=== PATIENT | female | born 1960 | race Caucasian/White ===

== ENCOUNTER → 2016-07-20 | Outpatient (CLI) | payer OTHER ==
[~2016-07-20] MED LIST: APAP/HYDROCODON1 T13 PO; BACTRIM DS1 TAB PO; CIPRO750 MG PO; COLACE100 MG PO; HYD25 PO; HYDROCHLOROTHIA25 MG PO; LIPI20 PO; LISINOPRIL40 MG PO; ZES20 PO; ZOC10 PO
[2016-07-20 10:20] LABS: BASOPHIL % 0.4 % (0-2); PLATELET COUNT 298 x10^3mcL (130-400); RED CELL DISTRIBUTION WIDTH 14.4 % (11.5-14.5)
[2016-07-20 10:26] LABS: ALBUMIN 3.3 g/dL (3.4-5.0); ALKALINE PHOSPHATASE 81 U/L (46-116); ALT/SGPT 50 U/L (14-59); AST/SGOT 23 U/L (15-37); BILIRUBIN TOTAL 0.34 mg/dL (0.20-1.00); CALCIUM 9.2 mg/dL (8.5-10.1); CHLORIDE SERUM 102 mmol/L (98-107); CHOLESTEROL 131 mg/dL (<200); CHOLESTEROL/HDL RATIO 2.4; CREATININE SERUM 0.6 mg/dL (0.6-1.0); GFR1 > 60 mL/min; GLUCOSE SERUM 138 mg/dL (74-106); HDL CHOLESTEROL 54 mg/dL (40-60); POTASSIUM SERUM 3.9 mmol/L (3.5-5.1); SODIUM SERUM 137 mmol/L (136-145); TRIGLYCERIDES 138 mg/dL (<150)
== END | disposition home or self-care (01) ==
LOC: LB 09:25
PROVIDERS: Internal Medicine
DX: I10 Essential (primary) hypertension (principal); D64.9 Anemia, unspecified; E78.5 Hyperlipidemia, unspecified; E03.9 Hypothyroidism, unspecified; E11.9 Type 2 diabetes mellitus without complications; R73.09 Other abnormal glucose

== ENCOUNTER → 2016-08-13 | Outpatient (CLI) | payer OTHER ==
[2016-08-13 10:25] LABS: BASOPHIL % 0.5 % (0-2); PLATELET COUNT 275 x10^3mcL (130-400)
[2016-08-13 10:27] LABS: RED CELL DISTRIBUTION WIDTH 14.7 % (11.5-14.5)
[2016-08-13 10:38] LABS: ALBUMIN 3.4 g/dL (3.4-5.0); ALKALINE PHOSPHATASE 91 U/L (46-116); ALT/SGPT 43 U/L (14-59); AST/SGOT 21 U/L (15-37); BILIRUBIN TOTAL 0.4 mg/dL (0.20-1.00); C REACTIVE PROTEIN 1.3 mg/dL (<=0.9); CALCIUM 9.2 mg/dL (8.5-10.1); CARBON DIOXIDE 24.6 mmol/L (21-32); CHLORIDE SERUM 99 mmol/L (98-107); CREATININE SERUM 0.7 mg/dL (0.6-1.0); GFR1 > 60 mL/min; GLUCOSE SERUM 161 mg/dL (74-106); POTASSIUM SERUM 3.6 mmol/L (3.5-5.1); SODIUM SERUM 133 mmol/L (136-145)
[2016-08-13 11:11] LABS: ERYTHROCYTE SED RATE 36 mm/hr (0-30)
== END | disposition home or self-care (01) ==
LOC: RD 09:38
PROVIDERS: Internal Medicine
DX: M25.561 Pain in right knee (principal)
CPT/HCPCS: 86480

== ENCOUNTER 2017-03-19 09:02 | Inpatient (IN) | payer OTHER ==
[~2017-03-19] VITALS: Ht 170.2 cm; Wt 96.7 kg
[2017-03-19 13:33] LABS: BASOPHIL % 1.6 % (0-2); PLATELET COUNT 276 x10^3mcL (130-400)
[2017-03-19] MEDS ORDERED: LIPI20 PO (13:38)
[2017-03-19] MEDS ORDERED: METHOTREXATE2.5 M2 PO (13:39)
[2017-03-19] MEDS ORDERED: COZ25 PO (13:39)
[2017-03-19] MEDS ORDERED: IMURAN50 MG PO (13:40)
[2017-03-19] MEDS ORDERED: METFORMIN HYDR500 M1 PO (13:41)
[2017-03-19] MEDS ORDERED: ASPIR 8181 MG PO (13:41)
[2017-03-19 13:42] LABS: RED CELL DISTRIBUTION WIDTH 15.7 % (11.5-14.5)
[2017-03-19 14:03] LABS: CALCIUM 9.4 mg/dL (8.5-10.1); CARBON DIOXIDE 29.7 mmol/L (21-32); CHLORIDE SERUM 101 mmol/L (98-107); CREATININE SERUM 0.6 mg/dL (0.6-1.0); GFR1 > 60 mL/min; GLUCOSE SERUM 121 mg/dL (74-106); POTASSIUM SERUM 3.8 mmol/L (3.5-5.1); SODIUM SERUM 139 mmol/L (136-145)
[2017-03-19 14:08] LABS: ALBUMIN 3.4 g/dL (3.4-5.0); ALKALINE PHOSPHATASE 58 U/L (46-116); ALT/SGPT 56 U/L (14-59); AST/SGOT 29 U/L (15-37); CHOLESTEROL 163 mg/dL (<200); PHOSPHOROUS 3.3 mg/dL (2.5-4.9); TOTAL PROTEIN, SERUM 7.1 g/dL (6.4-8.2)
[2017-03-19 14:10] LABS: HDL CHOLESTEROL 87 mg/dL (40-60)
[2017-03-19] MEDS ORDERED: PREDNISONE2.5 MG PO (14:15)
[2017-03-19 14:16] VITALS: BP 154/90
[2017-03-19 14:29] LABS: CHOLESTEROL/HDL RATIO 1.9
[2017-03-19 14:32] VITALS: Ht 170.2 cm; Wt 96.7 kg
[2017-03-19 14:34] LABS: FREE T4 1.13 ng/dL (0.76-1.46)
[2017-03-19 14:35] LABS: T4(THYROXINE) 13.4 ug/dL (4.7-13.3)
[2017-03-19 15:08] LABS: T3 TOTAL 1.66 ng/mL
[2017-03-19 16:16] VITALS: BP 148/84
[2017-03-19 16:23] LABS: microscopic required? YES; urine erythrocyte NEGATIVE (NEGATIVE)
[2017-03-19 17:43] LABS: AMPHETAMINE QUAL UR NONE DETECTED (NEG <=1000)
[2017-03-19 21:08] VITALS: BP 146/71
[2017-03-20 05:22] VITALS: BP 136/75
[2017-03-20 06:50] LABS: BASOPHIL % 0.2 % (0-2); PLATELET COUNT 294 x10^3mcL (130-400)
[2017-03-20 07:19] LABS: CALCIUM 9.1 mg/dL (8.5-10.1); CARBON DIOXIDE 24.6 mmol/L (21-32); CHLORIDE SERUM 101 mmol/L (98-107); CREATININE SERUM 0.6 mg/dL (0.6-1.0); GFR1 > 60 mL/min; GLUCOSE SERUM 148 mg/dL (74-106); PHOSPHOROUS 3.5 mg/dL (2.5-4.9); SODIUM SERUM 134 mmol/L (136-145)
[2017-03-20 07:33] LABS: RED CELL DISTRIBUTION WIDTH 15.3 % (11.5-14.5)
[2017-03-20 09:44] VITALS: BP 112/66
[2017-03-20 13:38] VITALS: BP 144/81
[2017-03-20] MEDS ORDERED: NEU300 PO (18:20)
[2017-03-20 20:13] VITALS: BP 169/97
[2017-03-21 04:55] VITALS: BP 136/71
[2017-03-21 08:46] VITALS: BP 159/90
[2017-03-21] MEDS ORDERED: BAC PO (16:15)
[2017-03-21] MEDS ORDERED: ACCU-CHEK1 EACH MC (16:15)
[2017-03-21] MEDS ORDERED: COZ50 PO (16:15)
[2017-03-21] MEDS ORDERED: BG FS (16:15)
[2017-03-21 16:40] VITALS: BP 144/87
[2017-03-21] MEDS ORDERED: COLACE100 MG PO (16:46)
[2017-03-21] MEDS ORDERED: MAC100 PO (17:02)
== END 2017-03-21 17:21 | disposition home or self-care (01) | DRG 551 ==
LOC: ED 09:02 → MU 13:12 → DU 13:12 → MU 03-20 19:41
PROVIDERS: Emergency Medicine; Family Medicine
DX: M51.17 Intervertebral disc disorders with radiculopathy, lumbosacral region (principal); N17.0 Acute kidney failure with tubular necrosis; N39.0 Urinary tract infection, site not specified; E87.1 Hypo-osmolality and hyponatremia; E11.65 Type 2 diabetes mellitus with hyperglycemia; E11.51 Type 2 diabetes mellitus with diabetic peripheral angiopathy without gangrene; E78.00 Pure hypercholesterolemia, unspecified; M94.1 Relapsing polychondritis; I10 Essential (primary) hypertension; E05.80 Other thyrotoxicosis without thyrotoxic crisis or storm; E66.9 Obesity, unspecified; Z68.33 Body mass index [BMI] 33.0-33.9, adult; Z82.0 Family history of epilepsy and other diseases of the nervous system; Z83.3 Family history of diabetes mellitus; Z82.49 Family history of ischemic heart disease and other diseases of the circulatory system
CPT/HCPCS: 82962; 83880; 84439; 97110-GP; 97116-GP; 97530-GP; J0696; J1100; J1885; J2001; J3010; J3301; J7030; J7500; J7512; J8610; Q0092

== ENCOUNTER 2017-05-06 08:26 | Day surgery (SDC) | payer OTHER ==
[2017-05-05 10:10] LABS: BASOPHIL % 0.4 % (0-2); PLATELET COUNT 301 x10^3mcL (130-400)
[2017-05-05 10:16] LABS: RED CELL DISTRIBUTION WIDTH 15.9 % (11.5-14.5)
[2017-05-05 10:26] LABS: microscopic required? YES; urine erythrocyte 1+ (NEGATIVE)
[2017-05-05 10:55] LABS: CALCIUM 9.7 mg/dL (8.5-10.1); CARBON DIOXIDE 30.7 mmol/L (21-32); CHLORIDE SERUM 103 mmol/L (98-107); CREATININE SERUM 0.6 mg/dL (0.6-1.0); GFR1 > 60 mL/min; GLUCOSE SERUM 108 mg/dL (74-106); POTASSIUM SERUM 3.8 mmol/L (3.5-5.1); SODIUM SERUM 141 mmol/L (136-145)
[~2017-05-06] VITALS: Ht 160 cm; Wt 95.2 kg
[~2017-05-06 08:26] MED LIST changes: +ACCU-CHEK1 EACH MC; +ASPIR 8181 MG PO; +BAC PO; +BG FS; +COZ25 PO; +COZ50 PO; +IMURAN50 MG PO; +MAC100 PO; +METFORMIN HYDR500 M1 PO; +METHOTREXATE2.5 M2 PO; +NEU300 PO; +PREDNISONE2.5 MG PO
[2017-05-06 08:48] VITALS: BP 154/95
[2017-05-06 14:52] VITALS: BP 128/92
== END 2017-05-06 14:50 | disposition home or self-care (01) ==
LOC: DS 08:26 → OR 09:00 → DS 10:00
PROVIDERS: Neuromusculoskeletal Medicine, Sports Medicine
PROC: 0SBC4ZZ Excision of Right Knee Joint, Percutaneous Endoscopic Approach (ICD-10-PCS; principal; 2017-05-06 10:00)
DX: S83.241A Other tear of medial meniscus, current injury, right knee, initial encounter (principal); M94.261 Chondromalacia, right knee; M06.9 Rheumatoid arthritis, unspecified; I10 Essential (primary) hypertension; E78.5 Hyperlipidemia, unspecified; E11.9 Type 2 diabetes mellitus without complications; E66.01 Morbid (severe) obesity due to excess calories; Z68.41 Body mass index [BMI] 40.0-44.9, adult; Z79.84 Long term (current) use of oral hypoglycemic drugs; X58.XXXA Exposure to other specified factors, initial encounter; Y92.9 Unspecified place or not applicable
CPT/HCPCS: 82962; J0690; J1030; J1720; J2250; J2270; J2405; J2704; J3010; J3490; J7030

== ENCOUNTER → 2017-05-25 | Outpatient (CLI) | payer OTHER ==
[2017-05-25 10:01] LABS: BASOPHIL % 0.8 % (0-2); PLATELET COUNT 246 x10^3mcL (130-400)
[2017-05-25 10:16] LABS: RED CELL DISTRIBUTION WIDTH 15.1 % (11.5-14.5)
[2017-05-25 11:38] LABS: ERYTHROCYTE SED RATE 22 mm/hr (0-30)
[2017-05-25 12:28] LABS: ALBUMIN 3.3 g/dL (3.4-5.0); ALKALINE PHOSPHATASE 64 U/L (46-116); ALT/SGPT 63 U/L (14-59); AST/SGOT 30 U/L (15-37); BILIRUBIN TOTAL 0.4 mg/dL (0.20-1.00); C REACTIVE PROTEIN < 0.2 mg/dL (<=0.9); CALCIUM 8.9 mg/dL (8.5-10.1); CARBON DIOXIDE 28.3 mmol/L (21-32); CHLORIDE SERUM 103 mmol/L (98-107); CREATININE SERUM 0.5 mg/dL (0.6-1.0); GFR1 > 60 mL/min; GLUCOSE SERUM 96 mg/dL (74-106); POTASSIUM SERUM 3.6 mmol/L (3.5-5.1); SODIUM SERUM 136 mmol/L (136-145); TOTAL PROTEIN, SERUM 6.5 g/dL (6.4-8.2)
== END | disposition home or self-care (01) ==
LOC: LB 09:35
DX: M94.8X9 Other specified disorders of cartilage, unspecified sites (principal)

== ENCOUNTER → 2017-07-07 | Outpatient (CLI) | payer OTHER ==
[2017-07-07 18:35] LABS: BASOPHIL % 0.9 % (0-2); PLATELET COUNT 263 x10^3mcL (130-400)
[2017-07-07 18:46] LABS: ALBUMIN 3.7 g/dL (3.4-5.0); ALKALINE PHOSPHATASE 87 U/L (46-116); ALT/SGPT 98 U/L (14-59); AST/SGOT 43 U/L (15-37); BILIRUBIN TOTAL 0.4 mg/dL (0.20-1.00); C REACTIVE PROTEIN 0.4 mg/dL (<=0.9); CALCIUM 9.4 mg/dL (8.5-10.1); CARBON DIOXIDE 27.2 mmol/L (21-32); CHLORIDE SERUM 103 mmol/L (98-107); CREATININE SERUM 0.6 mg/dL (0.6-1.0); GFR1 > 60 mL/min; GLUCOSE SERUM 136 mg/dL (74-106); POTASSIUM SERUM 3.6 mmol/L (3.5-5.1); SODIUM SERUM 139 mmol/L (136-145); TOTAL PROTEIN, SERUM 7.3 g/dL (6.4-8.2)
[2017-07-07 18:50] LABS: RED CELL DISTRIBUTION WIDTH 14.9 % (11.5-14.5)
[2017-07-07 19:51] LABS: ERYTHROCYTE SED RATE 25 mm/hr (0-30)
== END | disposition home or self-care (01) ==
LOC: RD 17:10
PROC: B54BZZZ Ultrasonography of Right Lower Extremity Veins (ICD-10-PCS; principal; 2017-07-07)
DX: M25.471 Effusion, right ankle (principal); I82.401 Acute embolism and thrombosis of unspecified deep veins of right lower extremity
CPT/HCPCS: 85378

== ENCOUNTER → 2017-07-22 | Outpatient (CLI) | payer OTHER | END | disposition home or self-care (01) | LOC: MI 12:43 | PROC: BQ37ZZZ Magnetic Resonance Imaging (MRI) of Right Knee (ICD-10-PCS; principal; 2017-07-22) | DX: M25.561 Pain in right knee (principal); M71.21 Synovial cyst of popliteal space [Baker], right knee ==

== ENCOUNTER → 2017-08-22 | Outpatient (CLI) | payer OTHER ==
[2017-08-22 11:06] LABS: ALKALINE PHOSPHATASE 84 U/L (46-116); ALT/SGPT 56 U/L (14-59); AST/SGOT 26 U/L (15-37); BILIRUBIN TOTAL 0.6 mg/dL (0.20-1.00); CALCIUM 8.5 mg/dL (8.5-10.1); CARBON DIOXIDE 24.4 mmol/L (21-32); CHLORIDE SERUM 102 mmol/L (98-107); CREATININE SERUM 0.6 mg/dL (0.6-1.0); GFR1 > 60 mL/min; GLUCOSE SERUM 97 mg/dL (74-106); POTASSIUM SERUM 3.3 mmol/L (3.5-5.1); SODIUM SERUM 136 mmol/L (136-145); TOTAL PROTEIN, SERUM 6.5 g/dL (6.4-8.2)
[2017-08-22 11:07] LABS: ALBUMIN 3.3 g/dL (3.4-5.0)
== END | disposition home or self-care (01) ==
LOC: LB 09:55
DX: R94.5 Abnormal results of liver function studies (principal)

== ENCOUNTER → 2017-09-22 | Outpatient (CLI) | payer OTHER ==
[2017-09-22 11:31] LABS: PLATELET COUNT 208 x10^3mcL (130-400); RED CELL DISTRIBUTION WIDTH 14.1 % (11.5-14.5)
[2017-09-22 11:52] LABS: ALBUMIN 3.8 g/dL (3.4-5.0); ALKALINE PHOSPHATASE 62 U/L (46-116); ALT/SGPT 63 U/L (14-59); AST/SGOT 33 U/L (15-37); BILIRUBIN TOTAL 0.58 mg/dL (0.20-1.00); CALCIUM 8.9 mg/dL (8.5-10.1); CARBON DIOXIDE 29.3 mmol/L (21-32); CHLORIDE SERUM 99 mmol/L (98-107); CREATININE SERUM 0.6 mg/dL (0.6-1.0); GFR1 > 60 mL/min; GLUCOSE SERUM 85 mg/dL (74-106); POTASSIUM SERUM 3.1 mmol/L (3.5-5.1); SODIUM SERUM 137 mmol/L (136-145)
[2017-09-22 11:53] LABS: C REACTIVE PROTEIN < 0.2 mg/dL (<=0.9)
[2017-09-22 12:26] LABS: ERYTHROCYTE SED RATE 13 mm/hr (0-30)
== END | disposition home or self-care (01) ==
LOC: LB 10:53
DX: M06.00 Rheumatoid arthritis without rheumatoid factor, unspecified site (principal); M79.7 Fibromyalgia; Z79.899 Other long term (current) drug therapy

== ENCOUNTER → 2018-01-20 | Outpatient (CLI) | payer OTHER ==
[2018-01-20 08:20] LABS: BASOPHIL % 1.1 % (0-2); PLATELET COUNT 237 x10^3mcL (130-400); RED CELL DISTRIBUTION WIDTH 13.7 % (11.5-14.5)
[2018-01-20 09:01] LABS: ERYTHROCYTE SED RATE 17 mm/hr (0-30)
[2018-01-20 09:02] LABS: ALBUMIN 3.7 g/dL (3.4-5.0); ALKALINE PHOSPHATASE 89 U/L (46-116); ALT/SGPT 47 U/L (14-59); AST/SGOT 25 U/L (15-37); BILIRUBIN TOTAL 0.53 mg/dL (0.20-1.00); C REACTIVE PROTEIN 0.2 mg/dL (<=0.9); CALCIUM 9.1 mg/dL (8.5-10.1); CARBON DIOXIDE 28.7 mmol/L (21-32); CHLORIDE SERUM 102 mmol/L (98-107); CREATININE SERUM 0.8 mg/dL (0.6-1.0); GFR1 > 60 mL/min; GLUCOSE SERUM 97 mg/dL (74-106); POTASSIUM SERUM 3.8 mmol/L (3.5-5.1); SODIUM SERUM 139 mmol/L (136-145); TOTAL PROTEIN, SERUM 7.4 g/dL (6.4-8.2)
== END | disposition home or self-care (01) ==
LOC: LB 07:55
DX: M06.00 Rheumatoid arthritis without rheumatoid factor, unspecified site (principal); M79.7 Fibromyalgia; Z79.899 Other long term (current) drug therapy

== ENCOUNTER → 2018-04-12 | Outpatient (CLI) | payer OTHER ==
[2018-04-12 09:20] LABS: BASOPHIL % 0.9 % (0-2); PLATELET COUNT 249 x10^3mcL (130-400)
[2018-04-12 09:21] LABS: RED CELL DISTRIBUTION WIDTH 14.7 % (11.5-14.5)
[2018-04-12 10:05] LABS: ALBUMIN 3.8 g/dL (3.4-5.0); ALKALINE PHOSPHATASE 88 U/L (46-116); ALT/SGPT 50 U/L (14-59); AST/SGOT 27 U/L (15-37); BILIRUBIN TOTAL 0.58 mg/dL (0.20-1.00); CALCIUM 9.1 mg/dL (8.5-10.1); CARBON DIOXIDE 30.9 mmol/L (21-32); CHLORIDE SERUM 103 mmol/L (98-107); CHOLESTEROL 193 mg/dL (<200); CREATININE SERUM 0.6 mg/dL (0.6-1.0); GFR1 > 60 mL/min; GLUCOSE SERUM 103 mg/dL (74-106); POTASSIUM SERUM 3.9 mmol/L (3.5-5.1); SODIUM SERUM 139 mmol/L (136-145); TOTAL PROTEIN, SERUM 7.7 g/dL (6.4-8.2); TRIGLYCERIDES 171 mg/dL (<150)
[2018-04-12 10:13] LABS: CHOLESTEROL/HDL RATIO 2.5; HDL CHOLESTEROL 76 mg/dL (40-60)
== END | disposition home or self-care (01) ==
LOC: LB 08:50
DX: E55.9 Vitamin D deficiency, unspecified (principal); I10 Essential (primary) hypertension; D64.9 Anemia, unspecified; E03.9 Hypothyroidism, unspecified; E11.9 Type 2 diabetes mellitus without complications

== ENCOUNTER → 2018-05-04 | Outpatient (CLI) | payer OTHER ==
[2018-05-04 10:59] LABS: PLATELET COUNT 214 x10^3mcL (130-400); RED CELL DISTRIBUTION WIDTH 14.2 % (11.5-14.5)
[2018-05-04 11:12] LABS: ALBUMIN 3.6 g/dL (3.4-5.0); ALKALINE PHOSPHATASE 78 U/L (46-116); ALT/SGPT 44 U/L (14-59); AST/SGOT 27 U/L (15-37); BILIRUBIN TOTAL 0.52 mg/dL (0.20-1.00); CALCIUM 8.8 mg/dL (8.5-10.1); CARBON DIOXIDE 27.4 mmol/L (21-32); CHLORIDE SERUM 104 mmol/L (98-107); CREATININE SERUM 0.5 mg/dL (0.6-1.0); GFR1 > 60 mL/min; GLUCOSE SERUM 98 mg/dL (74-106); POTASSIUM SERUM 3.7 mmol/L (3.5-5.1); SODIUM SERUM 140 mmol/L (136-145); TOTAL PROTEIN, SERUM 7.2 g/dL (6.4-8.2)
[2018-05-04 11:18] LABS: C REACTIVE PROTEIN < 2.0 mg/dL (<=0.9)
[2018-05-04 12:02] LABS: ERYTHROCYTE SED RATE 24 mm/hr (0-30)
== END | disposition home or self-care (01) ==
LOC: LB 10:21
DX: M06.00 Rheumatoid arthritis without rheumatoid factor, unspecified site (principal); M79.7 Fibromyalgia; Z79.899 Other long term (current) drug therapy

== ENCOUNTER → 2018-07-29 | Outpatient (CLI) | payer OTHER ==
[2018-07-29 13:10] LABS: BASOPHIL % 0.5 % (0-2); PLATELET COUNT 220 x10^3mcL (130-400)
[2018-07-29 13:35] LABS: ALBUMIN 3.8 g/dL (3.4-5.0); ALKALINE PHOSPHATASE 88 U/L (46-116); ALT/SGPT 41 U/L (14-59); AST/SGOT 20 U/L (15-37); BILIRUBIN TOTAL 0.53 mg/dL (0.20-1.00); CALCIUM 9.8 mg/dL (8.5-10.1); CARBON DIOXIDE 27.5 mmol/L (21-32); CHLORIDE SERUM 105 mmol/L (98-107); CHOLESTEROL 183 mg/dL (<200); CREATININE SERUM 0.6 mg/dL (0.6-1.0); GFR1 > 60 mL/min; GLUCOSE SERUM 106 mg/dL (74-106); POTASSIUM SERUM 3.8 mmol/L (3.5-5.1); SODIUM SERUM 141 mmol/L (136-145); TOTAL PROTEIN, SERUM 7.6 g/dL (6.4-8.2); TRIGLYCERIDES 137 mg/dL (<150)
[2018-07-29 13:47] LABS: C REACTIVE PROTEIN < 0.2 mg/dL (<=0.9); CHOLESTEROL/HDL RATIO 2.5; HDL CHOLESTEROL 74 mg/dL (40-60)
[2018-07-29 14:35] LABS: ERYTHROCYTE SED RATE 18 mm/hr (0-30)
== END | disposition home or self-care (01) ==
LOC: LB 12:27
DX: M94.1 Relapsing polychondritis (principal); R73.03 Prediabetes; M79.7 Fibromyalgia; Z79.899 Other long term (current) drug therapy; Z92.29 Personal history of other drug therapy

== ENCOUNTER → 2018-09-28 | Outpatient (CLI) | payer OTHER | END | disposition home or self-care (01) | LOC: US 08:33 | PROC: BW4GZZZ Ultrasonography of Pelvic Region (ICD-10-PCS; principal; 2018-09-28) | DX: R10.2 Pelvic and perineal pain (principal) ==

== ENCOUNTER → 2019-01-10 | Outpatient (CLI) | payer OTHER ==
[2019-01-10 09:35] LABS: BASOPHIL % 1.3 % (0-2); PLATELET COUNT 247 x10^3mcL (130-400)
[2019-01-10 09:57] LABS: RED CELL DISTRIBUTION WIDTH 14.7 % (11.5-14.5)
[2019-01-10 10:55] LABS: ERYTHROCYTE SED RATE 20 mm/hr (0-30)
[2019-01-10 16:07] LABS: ALBUMIN 3.8 g/dL (3.4-5.0); ALKALINE PHOSPHATASE 76 U/L (46-116); ALT/SGPT 50 U/L (14-59); AST/SGOT 18 U/L (15-37); BILIRUBIN TOTAL 0.49 mg/dL (0.20-1.00); CALCIUM 9.1 mg/dL (8.5-10.1); CARBON DIOXIDE 28.4 mmol/L (21-32); CREATININE SERUM 0.6 mg/dL (0.6-1.0); GFR1 > 60 mL/min; GLUCOSE SERUM 91 mg/dL (74-106); TOTAL PROTEIN, SERUM 7.7 g/dL (6.4-8.2); TRIGLYCERIDES 187 mg/dL (<150)
[2019-01-10 16:15] LABS: C REACTIVE PROTEIN < 0.2 mg/dL (<=0.9); CHLORIDE SERUM 98 mmol/L (98-107); CHOLESTEROL 203 mg/dL (<200); CHOLESTEROL/HDL RATIO 3.1; HDL CHOLESTEROL 66 mg/dL (40-60); POTASSIUM SERUM 3.9 mmol/L (3.5-5.1); SODIUM SERUM 136 mmol/L (136-145)
== END | disposition home or self-care (01) ==
LOC: LB 08:50
DX: M79.7 Fibromyalgia (principal); R06.9 Unspecified abnormalities of breathing; E55.9 Vitamin D deficiency, unspecified; E03.9 Hypothyroidism, unspecified; I10 Essential (primary) hypertension; Z01.818 Encounter for other preprocedural examination
CPT/HCPCS: Q0092

== ENCOUNTER → 2019-02-28 | Outpatient (CLI) | payer OTHER | END | disposition home or self-care (01) | LOC: RD 02-27 10:20 | DX: M79.671 Pain in right foot (principal) ==

== ENCOUNTER → 2019-04-25 | Outpatient (CLI) | payer OTHER ==
[2019-04-25 08:42] LABS: BASOPHIL % 0.5 % (0-2); PLATELET COUNT 295 x10^3mcL (130-400); RED CELL DISTRIBUTION WIDTH 13.6 % (11.5-14.5)
[2019-04-25 09:10] LABS: ALBUMIN 3.4 g/dL (3.4-5.0); ALKALINE PHOSPHATASE 71 U/L (46-116); ALT/SGPT 33 U/L (14-59); AST/SGOT 15 U/L (15-37); BILIRUBIN TOTAL 0.3 mg/dL (0.20-1.00); CALCIUM 8.8 mg/dL (8.5-10.1); CARBON DIOXIDE 28.9 mmol/L (21-32); CHLORIDE SERUM 102 mmol/L (98-107); CREATININE SERUM 0.7 mg/dL (0.6-1.0); GFR1 > 60 mL/min; GLUCOSE SERUM 82 mg/dL (74-106); POTASSIUM SERUM 3.3 mmol/L (3.5-5.1); SODIUM SERUM 138 mmol/L (136-145); TOTAL PROTEIN, SERUM 7.2 g/dL (6.4-8.2)
[2019-04-25 09:32] LABS: C REACTIVE PROTEIN < 0.2 mg/dL (<=0.9)
[2019-04-25 12:42] LABS: ERYTHROCYTE SED RATE 23 mm/hr (0-30)
== END | disposition home or self-care (01) ==
LOC: LB 07:45
DX: M06.00 Rheumatoid arthritis without rheumatoid factor, unspecified site (principal); M79.7 Fibromyalgia; M19.90 Unspecified osteoarthritis, unspecified site; Z79.899 Other long term (current) drug therapy

== ENCOUNTER → 2019-11-26 | Outpatient (CLI) | payer OTHER ==
[2019-11-26 08:39] LABS: BASOPHIL % 0.8 % (0-2); PLATELET COUNT 213 x10^3mcL (130-400); RED CELL DISTRIBUTION WIDTH 14.2 % (11.5-14.5)
[2019-11-26 09:39] LABS: ALBUMIN 3.6 g/dL (3.4-5.0); ALKALINE PHOSPHATASE 62 U/L (46-116); ALT/SGPT 48 U/L (14-59); AST/SGOT 22 U/L (15-37); BILIRUBIN TOTAL 0.42 mg/dL (0.20-1.00); C REACTIVE PROTEIN 0.6 mg/dL (<=0.9); CALCIUM 8.8 mg/dL (8.5-10.1); CARBON DIOXIDE 26.6 mmol/L (21-32); CHLORIDE SERUM 104 mmol/L (98-107); CREATININE SERUM 0.6 mg/dL (0.6-1.0); GFR1 > 60 mL/min; GLUCOSE SERUM 103 mg/dL (74-106); POTASSIUM SERUM 3.5 mmol/L (3.5-5.1); SODIUM SERUM 139 mmol/L (136-145); TOTAL PROTEIN, SERUM 7.3 g/dL (6.4-8.2)
== END | disposition home or self-care (01) ==
LOC: LB 08:06
DX: M06.9 Rheumatoid arthritis, unspecified (principal); Z79.899 Other long term (current) drug therapy

== ENCOUNTER → 2020-01-02 | Outpatient (CLI) | payer OTHER ==
[2020-01-02 10:15] LABS: BASOPHIL % 0.6 % (0-2); PLATELET COUNT 236 x10^3mcL (130-400); RED CELL DISTRIBUTION WIDTH 14.3 % (11.5-14.5)
[2020-01-02 10:29] LABS: ALBUMIN 3.8 g/dL (3.4-5.0); ALKALINE PHOSPHATASE 63 U/L (46-116); ALT/SGPT 45 U/L (14-59); AST/SGOT 25 U/L (15-37); BILIRUBIN DIRECT 0.09 mg/dL (0.0-0.2); BILIRUBIN TOTAL 0.5 mg/dL (0.20-1.00); CARBON DIOXIDE 31.7 mmol/L (21-32); CHLORIDE SERUM 101 mmol/L (98-107); CHOLESTEROL 244 mg/dL (<200); CHOLESTEROL/HDL RATIO 3.9; CREATININE SERUM 0.6 mg/dL (0.6-1.0); GFR1 > 60 mL/min; GLUCOSE SERUM 95 mg/dL (74-106); HDL CHOLESTEROL 63 mg/dL (40-60); POTASSIUM SERUM 3.9 mmol/L (3.5-5.1); SODIUM SERUM 136 mmol/L (136-145); TOTAL PROTEIN, SERUM 7.4 g/dL (6.4-8.2); TRIGLYCERIDES 223 mg/dL (<150)
== END | disposition home or self-care (01) ==
LOC: LB 09:17
PROVIDERS: ATTEND Internal Medicine
DX: Z00.00 Encounter for general adult medical examination without abnormal findings (principal)

== ENCOUNTER → 2020-05-02 | Outpatient (CLI) | payer OTHER ==
[2020-05-02 08:55] LABS: microscopic required? NO
[2020-05-02 09:15] LABS: BASOPHIL % 0.7 % (0.2-1.3); PLATELET COUNT 257 x10^3mcL (179-408); RED CELL DISTRIBUTION WIDTH 13.5 % (12.3-17.7)
[2020-05-02 09:33] LABS: ALBUMIN 3.8 g/dL (3.4-5.0); ALKALINE PHOSPHATASE 67 U/L (46-116); ALT/SGPT 50 U/L (14-59); AST/SGOT 24 U/L (15-37); BILIRUBIN TOTAL 0.5 mg/dL (0.20-1.00); C REACTIVE PROTEIN 0.4 mg/dL (<=0.9); CALCIUM 9.6 mg/dL (8.5-10.1); CARBON DIOXIDE 26.7 mmol/L (21-32); CHLORIDE SERUM 100 mmol/L (98-107); CREATININE SERUM 0.7 mg/dL (0.6-1.0); GFR1 > 60 mL/min; GLUCOSE SERUM 88 mg/dL (74-106); POTASSIUM SERUM 3.8 mmol/L (3.5-5.1); SODIUM SERUM 137 mmol/L (136-145); TOTAL PROTEIN, SERUM 7.8 g/dL (6.4-8.2)
[2020-05-02 10:29] LABS: UA SPECIFIC GRAVITY 1.025 (1.005-1.035); urine erythrocyte NEGATIVE (NEGATIVE)
[2020-05-02 10:30] LABS: ERYTHROCYTE SED RATE 25 mm/hr (0-30)
== END | disposition home or self-care (01) ==
LOC: LB 08:39
DX: M06.9 Rheumatoid arthritis, unspecified (principal); R35.0 Frequency of micturition; E55.9 Vitamin D deficiency, unspecified; E53.9 Vitamin B deficiency, unspecified